=== PATIENT | female | born 1990 | race Caucasian/White ===

== ENCOUNTER 2016-08-08 17:11 | Emergency (ER) | payer MEDICAID ==
--- NOTE | 2016-08-09 11:11 | NUR ---
Received referral. Spoke with pt. Pt states she had her substance use evaluation yesturday. States she is working on getting into a treatment facility. Gave pt voucher to help pay for dc medication from ED. Also gave pt information on [facility], [facility], [facility], and [facility].
--- NOTE | 2016-08-10 13:20 | ER ---
ADMIT: 08/08/2016 RM/LOC: ER [facility] MR#: [id number] [facility] [address] [place] [place], [place] [id number] MELISSA YEE [address] [place] [address] Emergency Room Report SEX: F AGE: 25 : 1990 DATE: 08/08/2016 CHIEF COMPLAINT: Bilateral arm sores. HISTORY OF PRESENT ILLNESS: This is a 25-year-old female, who presents to us after getting out of detox for active heroin use. The patient states she last used about 7 days ago injecting in her bilateral lower arms. Since then, she has had increased redness and swelling and tenderness in her bilateral lower forearms. Rates the pain as an 8/10, admits to some chills. PAST MEDICAL HISTORY: PTSD, anxiety, depression, and admits to heroin use. Requests planning placement for drug treatment today. COURSE IN THE EMERGENCY ROOM: The patient was seen and examined. She is afebrile and nontoxic. She does have abscess on the left lower arm, it is very tender and indurated at this point and fluctuant with erythema just about the abscess. The right lower arm has a slightly larger area, however, it is not as fluctuant, it is more indurated at this point. PROCEDURE NOTE: This is an I and D of an abscess. The area was cleaned thoroughly with Betadine, it was anesthetized with 2 mL of lidocaine with epinephrine until a wheal was raised. It was incised with a scalpel, drained using suction. It was probed with a Hemostat to break up loculations and drained until there was no more exudate. She was given her first dose of Bactrim in the department prior to discharge. IMPRESSION: Bilateral lower arm abscesses. DISPOSITION: The patient will be started on Bactrim DS 1 tab p.o. b.i.d. for 10 days. She is to apply warm compresses to both arms, encouraged continued drainage. Follow up with Dr. Hollins in 1 week as the right lower arm will likely need to be drained. Wash daily with warm soapy water. Tylenol or ibuprofen as needed for pain. Continue home medications. Return with worsening signs or symptoms. Questions sought and answered to the best of my ability and to the patient's satisfaction. She is discharged in stable condition. CAROLE Stanley / Simon Elder MD / ivana JOB #: [id number] CC: Simon Elder MD, Attending Physician Rj Hollins MD, Family Physician
== END 2016-08-08 19:00 | disposition home or self-care (01) ==
LOC: ER 17:11
PROC: 0H9DXZZ Drainage of Right Lower Arm Skin, External Approach (ICD-10-PCS; principal; 2016-08-08)
PROC: 0H9EXZZ Drainage of Left Lower Arm Skin, External Approach (ICD-10-PCS; principal; 2016-08-08)
DX: L02.414 Cutaneous abscess of left upper limb (principal); L02.413 Cutaneous abscess of right upper limb; F11.10 Opioid abuse, uncomplicated; F41.9 Anxiety disorder, unspecified; F32.9 Major depressive disorder, single episode, unspecified; Z88.1 Allergy status to other antibiotic agents; Z79.899 Other long term (current) drug therapy